=== PATIENT | female | born 1965 | race Two or more races ===

== ENCOUNTER 2020-05-12 19:37 | Inpatient (IN) | payer OTHER, BC ==
[~2020-05-12] VITALS: Ht 154.9 cm; Wt 128.3 kg
[2020-05-12] MEDS ORDERED: KETOROLAC TROMETH 30 MG/ML 1ML VIAL ONE (22:19)
[2020-05-12] MEDS ORDERED: KETOROLAC TROMETH 30 MG/ML 1ML VIAL IV ONE (22:30)
[2020-05-12 23:48] LABS: Basophils # (auto) 0 10 ^3/uL (0-0.2); Basophils % (auto) 0.3 % (0.0-2.0); Eosinophils # (auto) 0 10 ^3/uL (0-0.8); Eosinophils % (auto) 0.1 % (0.0-7.0); Hematocrit 35.5 % (36.0-46.0); Hemoglobin 11.6 g/dL (12.2-16.2); Lymphocytes # (auto) 1.1 10 ^3/uL (0.4-5.4); Lymphocytes % (auto) 7.7 % (10.0-50.0); Mean Corpuscular Hemoglobin 28.4 pg (28.0-32.0); Mean Corpuscular Hgb Conc. 32.7 g/dL (32.0-36.0); Mean Corpuscular Volume 86.9 fL (80.0-100.0); Monocytes # (auto) 0.7 10 ^3/uL (0-1.3); Monocytes % (auto) 4.9 % (0.0-12.0); Neutrophils # (auto) 12.9 10 ^3/uL (1.6-8.6); Nucleated Red Blood Cells % 0.1 %; Platelet Count (auto) 328 10^3/uL (140-450); Red Blood Cells 4.08 10^6/uL (4.0-5.20); Red Cell Distribution Width 13.1 % (11.8-14.3); White Blood Cell 14.8 10^3/uL (4.4-10.8)
[2020-05-13] VITALS (7 sets, daily range): BP systolic 105–135; BP diastolic 42–70
[2020-05-13 00:07] LABS: Alanine Aminotransferase 20 U/L (13-56); Albumin 3.7 g/dL (3.4-5.0); Anion Gap 8 (5-15); Aspartate Aminotransferase 18 U/L (15-37); BUN/Creatinine Ratio 23.7; Blood Urea Nitrogen 18 mg/dL (7-18); Calcium 8.3 mg/dL (8.5-10.1); Carbon Dioxide 27 mmol/L (21-32); Chloride 104 mmol/L (98-107); GFR African American 101 mL/min; GFR Non-African American 83 mL/min; Glucose 116 mg/dL (74-106); Potassium 4.2 mmol/L (3.5-5.1); Sodium 139 mmol/L (136-145)
[2020-05-13 00:12] LABS: Alkaline Phosphatase 73 U/L (45-117); Bilirubin, Total 0.5 mg/dL (0.2-1.0); Total Protein 7.1 g/dL (6.4-8.2)
[2020-05-13 00:32] LABS: INR 0.98 (0.9-1.15)
[2020-05-13] MEDS: D5W/SOD CHL 0.45% 1,000 ML IV SCH ×2 (01:30→18:21)
[2020-05-13] MEDS ORDERED: MORPHINE SULF INJ 2 MG/ML SYRINGE 1ML IV PRN (01:30)
[2020-05-13] MEDS ORDERED: ACETAMINOPHEN 325 MG TAB PO PRN (01:30)
[2020-05-13] MEDS ORDERED: NITROGLYCERIN 0.4 MG SL TAB SL PRN (01:30)
[2020-05-13] MEDS: ONDANSETRON HCL 4 MG/2 ML VIAL IV PRN ×4 (03:40→21:39)
[2020-05-13] MEDS: MORPHINE SULFATE 4 MG/ML SYR/VIAL IV PRN ×4 (03:40→21:38)
--- NOTE | 2020-05-13 04:00 | NUR ---
Telemetry admit from ER: AMANDA REYES admitted to Telemetry unit after SBAR received. Patient oriented to EVI FLOWERS RN primary RN, unit, room, bed, and unit policies regarding patient care and visiting hours. Patient now on continuous telemetry monitoring, tele box # [id number], and telemetry reading on arrival to unit is SINUS RHYTHM, 76 BPM. Patient encouraged to call if they need something. All questions and concerns addressed, patient verbalized understanding. Addendum: 05/13/20 at 0439 by EVI FLOWERS RN RN TELE #[id number]
[2020-05-13 06:36] LABS: Basophils # (auto) 0 10 ^3/uL (0-0.2); Basophils % (auto) 0.5 % (0.0-2.0); Eosinophils # (auto) 0 10 ^3/uL (0-0.8); Eosinophils % (auto) 0.4 % (0.0-7.0); Hematocrit 34.4 % (36.0-46.0); Hemoglobin 11.2 g/dL (12.2-16.2); Lymphocytes # (auto) 1.8 10 ^3/uL (0.4-5.4); Lymphocytes % (auto) 20.7 % (10.0-50.0); Mean Corpuscular Hemoglobin 28.4 pg (28.0-32.0); Mean Corpuscular Hgb Conc. 32.7 g/dL (32.0-36.0); Mean Corpuscular Volume 86.9 fL (80.0-100.0); Monocytes # (auto) 0.8 10 ^3/uL (0-1.3); Neutrophils # (auto) 5.9 10 ^3/uL (1.6-8.6); Neutrophils % (auto) 69.4 % (37.0-80.0); Platelet Count (auto) 317 10^3/uL (140-450); Red Blood Cells 3.96 10^6/uL (4.0-5.20); Red Cell Distribution Width 13.4 % (11.8-14.3); White Blood Cell 8.5 10^3/uL (4.4-10.8)
[2020-05-13 06:59] LABS: Calcium 8.2 mg/dL (8.5-10.1); Potassium 4.1 mmol/L (3.5-5.1)
[2020-05-13 07:05] LABS: Albumin 3.5 g/dL (3.4-5.0); BUN/Creatinine Ratio 20.5; Bilirubin, Total 0.8 mg/dL (0.2-1.0); Total Protein 6.9 g/dL (6.4-8.2)
--- NOTE | 2020-05-13 08:02 | NUR ---
Dr. Mauro called regarding patient status. Dr. Mauro to transfer patient to [facility] to refer to Ortho trauma specialist Dr. Quiroga. Doctor said is his way to see patient at hospital.
--- NOTE | 2020-05-13 08:15 | NUR ---
Tone Mauro at bedside talking to patient. Dr. Mauro said patient to be transferred today to [facility] and possible surgery tomorrow 05/14. Patient understood plan. Will continue to monitor and follow up.
[2020-05-13] MEDS: PANTOPRAZOLE 40 MG/10 ML VIAL INJ IV SCH (10:47)
[2020-05-13] MEDS: ENOXAPARIN SOD 40 MG/0.4 ML SYRINGE SC SCH (10:48)
[2020-05-13] MEDS: cefTRIAXone 1GM/50ML D5W 50 ML IV SCH (10:48)
--- NOTE | 2020-05-13 12:40 | NUR ---
Paged personal development educator rn social work at this time. Awaiting call back.
--- NOTE | 2020-05-13 13:05 | NUR ---
COVID SWAB COLLECTED AND WALKED TO LAB.
--- NOTE | 2020-05-13 13:06 | NUR ---
Called [facility] [phone], spoke with [facility] [employer], stated they do not have any beds, but took the name of the patient and stated to fax the Clinical Packet which I did, . Stated she would need the CT of the Head and the COVID faxed to her when it was done, Called the Nurse Bridget and ask her to fax the CT of the Head and the COVI test. Stated I would need to get auth from [facility] but stated they are closed today, express to Nikole that I would fax the packet to then [facility] try to call.
--- NOTE | 2020-05-13 14:33 | NUR ---
CALLED AND UPDATED DR. Lavinia GONG REGARDING HEAD CT RESULTS.
--- NOTE | 2020-05-13 19:10 | NUR ---
CLOSING NOTE: PATIENT RESTING IN BED. NO S/S OF DISTRESS.
[2020-05-13] MEDS: HYDROcodone-ACET 5/325MG TAB PO PRN (23:33)
[2020-05-14] MEDS: MORPHINE SULFATE 4 MG/ML SYR/VIAL IV PRN ×2 (03:31→09:23)
[2020-05-14 05:00] VITALS: BP 133/56
[2020-05-14] MEDS: D5W/SOD CHL 0.45% 1,000 ML IV SCH ×2 (05:15→17:30)
[2020-05-14] MEDS: HYDROcodone-ACET 5/325MG TAB PO PRN ×3 (05:16→20:21)
--- NOTE | 2020-05-14 07:40 | NUR ---
Opening Shift Note: Assumed care of patient, awake and alert. No S/S of distress/SOB. Bed in lowest locked position, side rails up x 2, call light within reach. Patient instructed on POC and to call for assist PRN, will continue to monitor for changes Q1hr and PRN.
--- NOTE | 2020-05-14 08:47 | NUR ---
Received a call from Fran at [facility] [phone], stated they do not have beds and did not receive the CT of the Head or Covid results, express to her that I will fax them
[2020-05-14] MEDS: cefTRIAXone 1GM/50ML D5W 50 ML IV SCH (09:10)
[2020-05-14] MEDS: ONDANSETRON HCL 4 MG/2 ML VIAL IV PRN (09:11)
[2020-05-14] MEDS: PANTOPRAZOLE 40 MG/10 ML VIAL INJ IV SCH (09:11)
[2020-05-14] MEDS: ENOXAPARIN SOD 40 MG/0.4 ML SYRINGE SC SCH (09:11)
[2020-05-14 09:21] LABS: Basophils # (auto) 0.1 10 ^3/uL (0-0.2); Basophils % (auto) 0.7 % (0.0-2.0); Eosinophils # (auto) 0.2 10 ^3/uL (0-0.8); Eosinophils % (auto) 1.9 % (0.0-7.0); Hematocrit 31.5 % (36.0-46.0); Hemoglobin 10.2 g/dL (12.2-16.2); Lymphocytes % (auto) 24.7 % (10.0-50.0); Mean Corpuscular Hemoglobin 28.5 pg (28.0-32.0); Mean Corpuscular Hgb Conc. 32.4 g/dL (32.0-36.0); Mean Corpuscular Volume 87.9 fL (80.0-100.0); Monocytes # (auto) 0.9 10 ^3/uL (0-1.3); Monocytes % (auto) 11.6 % (0.0-12.0); Neutrophils % (auto) 61.1 % (37.0-80.0); Platelet Count (auto) 280 10^3/uL (140-450); Red Blood Cells 3.58 10^6/uL (4.0-5.20); Red Cell Distribution Width 13.5 % (11.8-14.3); White Blood Cell 8.2 10^3/uL (4.4-10.8)
[2020-05-14 09:40] LABS: Albumin 3.3 g/dL (3.4-5.0); Calcium 8.2 mg/dL (8.5-10.1); Potassium 3.6 mmol/L (3.5-5.1)
[2020-05-14 09:44] LABS: BUN/Creatinine Ratio 13.7; Bilirubin, Total 0.4 mg/dL (0.2-1.0); Total Protein 6.9 g/dL (6.4-8.2)
--- NOTE | 2020-05-14 10:44 | NUR ---
FAXED CT SCAN AND COVID RESULTS TO [facility].
--- NOTE | 2020-05-14 11:34 | NUR ---
Juarez catheter insertion: Patient assessed and determined to be in need of juarez catheter. Order obtained from MD Lavinia Lewis. Patient educated on catheter and reason for insertion. All questions answered. Juarez catheter 16 guage German inserted with clean sterile technique. Patient tolerated well.
[2020-05-14] MEDS: DOCUSATE SOD 100 MG CAP PO PRN ×2 (13:48→20:31)
[2020-05-14 17:13] VITALS: BP 133/92
[2020-05-14] MEDS: KETOROLAC TROMETH 30 MG/ML 1ML VIAL IV PRN (17:55)
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
[2020-05-14 21:00] VITALS: BP 144/70
[2020-05-15] MEDS: KETOROLAC TROMETH 30 MG/ML 1ML VIAL IV PRN ×2 (01:58→13:17)
[2020-05-15 05:00] VITALS: BP 132/52
[2020-05-15] MEDS: D5W/SOD CHL 0.45% 1,000 ML IV SCH ×2 (06:33→20:10)
[2020-05-15 08:37] VITALS: BP 127/37
[2020-05-15] MEDS: PANTOPRAZOLE 40 MG/10 ML VIAL INJ IV SCH (08:39)
[2020-05-15] MEDS: cefTRIAXone 1GM/50ML D5W 50 ML IV SCH (08:39)
[2020-05-15] MEDS: DOCUSATE SOD 100 MG CAP PO PRN ×2 (08:40→21:58)
[2020-05-15] MEDS: HYDROcodone-ACET 5/325MG TAB PO PRN ×3 (08:40→21:58)
[2020-05-15] MEDS: ENOXAPARIN SOD 40 MG/0.4 ML SYRINGE SC SCH (08:43)
--- NOTE | 2020-05-15 11:56 | NUR ---
Called [facility] [phone] ext [phone], spoke with Fran transfer station operator stated they have no beds.
--- NOTE | 2020-05-15 12:05 | NUR ---
Nutrition Assessment Est energy needs 7073-6734 kcal (25-30 kcal/kg BW 58kg) Est protein need 47-58g (0.8-1g/kg BW 58kg) Will monitor and reassess prn. Addendum: 05/15/20 at [address] Amended: Links added.
[2020-05-15] MEDS: ONDANSETRON HCL 4 MG/2 ML VIAL IV PRN (13:17)
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
[2020-05-15 16:43] VITALS: BP 124/74
--- NOTE | 2020-05-15 19:30 | NUR ---
Opening Shift Note Assumed care of patient, awake and alert. No S/S of distress/SOB, and pt denies pain. Pt requesting nurse delay assessment, "until your med pass. I am working on having a bowel movement. Insructed on POC and to call for assist PRN; pt agreed with POC and to call prn. This RN will continue to monitor for changes Q1hr and PRN. Bed low and nurse call light within pt's reach. Nurse had brought bedpan to pt per her request placing it in bed with pt per her request.
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
[2020-05-15 22:00] VITALS: BP 137/61
--- NOTE | 2020-05-15 22:24 | NUR ---
Pt refusing more IV fluid at this time; taking fluids well. Pt states she feels IV site may become infiltrated soon and does not want to have a new IV site at this time; therefore she wants this site "to rest."
[2020-05-16] MEDS: HYDROcodone-ACET 5/325MG TAB PO PRN ×3 (03:26→15:16)
[2020-05-16 04:00] VITALS: BP 140/51
[2020-05-16] MEDS: DOCUSATE SOD 100 MG CAP PO PRN (08:53)
[2020-05-16] MEDS: ENOXAPARIN SOD 40 MG/0.4 ML SYRINGE SC SCH (08:55)
[2020-05-16] MEDS: cefTRIAXone 1GM/50ML D5W 50 ML IV SCH (08:55)
[2020-05-16 09:00] VITALS: BP 149/66
[2020-05-16] MEDS: D5W/SOD CHL 0.45% 1,000 ML IV SCH (09:30)
--- NOTE | 2020-05-16 09:38 | NUR ---
Called and spoke with Megan [phone] at [facility] and ask about the authorization for the patient to be transferred to [facility], stated I needed to call [facility] , Called [facility] and spoke with Kendall Yi, stated that the facility that we were transferring the patient to has to call and get auth. Called [facility] [phone] and spoke with Nikole at the transportation Center, explain that [facility] would not give me auth for the patient, stated they have to call, per Nikole they have no beds and are not taking any transfers. Called the [facility] and spoke with the Charge Nurse Fran, ask her to tell the nurse Ama PLASENCIA, and let the MD know.
--- NOTE | 2020-05-16 09:54 | NUR ---
Called Dr Mauro informed him that [facility] states they will not have a bed for the patient, stated he has spoke with Dr Quiroga at [facility] and he stated the patient can been seen as an outpatient, stated he spoke with Dr Lewis and explain that she can be discharged and go there to see the MD.
[2020-05-16] MEDS: PANTOPRAZOLE 40 MG/10 ML VIAL INJ IV SCH (10:00)
--- NOTE | 2020-05-16 10:07 | NUR ---
Received a message from Anastasia SHELL for [employer] [phone], stating that she needs the records for the patient, tried t0 return the call but no answer, left a message stating that we have requested the records be faxed to her by the remote team, left anderson back information.
--- NOTE | 2020-05-16 10:49 | NUR ---
Received a call from [facility] Nurse for [facility] [phone] gave update on the patient,
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
[2020-05-16 13:00] VITALS: BP 139/41
[2020-05-16 15:17] VITALS: BP 139/41
--- NOTE | 2020-05-16 18:01 | NUR ---
DISCHARGE INSTRUCTIONS AND WORK EXCUSE GIVEN TO PT. VERBALIZED UNDERSTANDING AND ALL APPROPRIATE PAPERWORK SIGNED. IV AND TELE BOX REMOVED. PT TOOK CRUTCHES ALONG WITH HER. PT DISCHARGED HOME WITH FRIENDS.
== END 2020-05-16 17:35 | disposition home or self-care (01) | DRG 563 ==
LOC: EDBD 19:37 → ER 19:43 → TELE 19:44 → TELE-WESTW 05-13 04:00
PROVIDERS: ADMIT Nurse Practitioner Family; ATTEND Family Medicine
DX: S82.201A Unspecified fracture of shaft of right tibia, initial encounter for closed fracture (principal); M97.11XA Periprosthetic fracture around internal prosthetic right knee joint, initial encounter; S82.831A Other fracture of upper and lower end of right fibula, initial encounter for closed fracture; D72.829 Elevated white blood cell count, unspecified; Z20.828 Contact with and (suspected) exposure to other viral communicable diseases; Z96.651 Presence of right artificial knee joint; V89.2XXA Person injured in unspecified motor-vehicle accident, traffic, initial encounter; Y92.410 Unspecified street and highway as the place of occurrence of the external cause; Y93.89 Activity, other specified
CPT/HCPCS: 36415; 70450; 71045; 73560; 73700; 80053; 84484; 85025; 85610; 93005; 97163; C9113; G0378; J0696; J1885; J2405

== ENCOUNTER 2024-02-12 19:17 | Emergency (ER) | payer BC, MEDICAID ==
[~2024-02-12] VITALS: Ht 154.9 cm; Wt 54.6 kg
[2024-02-12 20:11] LABS: Urine Bacteria None Seen /hpf (None Seen)
[2024-02-12] MEDS: MORPHINE SULFATE 4 MG/ML SYR/VIAL IV ONE (20:15)
[2024-02-12 20:26] LABS: Urine Blood Negative /uL (Negative); Urine Clarity Clear (Clear); Urine Color Yellow (Yellow); Urine Mucus FEW (None Seen); Urine Protein, UAD Negative (Negative); Urine Specific Gravity 1.018 (1.001-1.035); Urine Urobilinogen Normal (Negative); Urine WBC 2 /hpf (0 - 5); Urine pH 5.5 (5.0-9.0)
[2024-02-12 20:26] LABS: Basophils # (auto) 0.1 10 ^3/uL (0-0.2); Eosinophils # (auto) 0.2 10 ^3/uL (0-0.8); Eosinophils % (auto) 2.6 % (0.0-7.0); Hematocrit 38.6 % (36.0-46.0); Lymphocytes # (auto) 3.3 10 ^3/uL (0.4-5.4); Mean Corpuscular Hemoglobin 29.1 pg (28.0-32.0); Mean Corpuscular Hgb Conc. 33.8 g/dL (32.0-36.0); Mean Corpuscular Volume 86.2 fL (80.0-100.0); Monocytes # (auto) 0.7 10 ^3/uL (0-1.3); Neutrophils # (auto) 4.3 10 ^3/uL (1.6-8.6); Neutrophils % (auto) 50.4 % (37.0-80.0); Platelet Count (auto) 299 10^3/uL (140-450); Red Blood Cells 4.48 10^6/uL (4.0-5.20); Red Cell Distribution Width 13.3 % (11.8-14.3); White Blood Cell 8.6 10^3/uL (4.4-10.8)
[2024-02-12 20:47] LABS: Alanine Aminotransferase 13 U/L (7-40); Albumin 4.2 g/dL (3.2-4.8); Alkaline Phosphatase 82 U/L (46-116); Anion Gap 7 (5-15); Aspartate Aminotransferase 16 U/L (13-40); BUN/Creatinine Ratio 16.3 (10.0-20.0); Bilirubin, Total 0.5 mg/dL (0.2-1.0); Blood Urea Nitrogen 15 mg/dL (9-23); Calcium 8.6 mg/dL (8.7-10.4); Carbon Dioxide 23 mmol/L (20-30); Chloride 110 mmol/L (98-107); Glucose 91 mg/dL (74-106); Lipase 45 U/L (12-53); Potassium 3.5 mmol/L (3.5-5.1); Sodium 140 mmol/L (136-145); Total Protein 6.9 g/dL (5.7-8.2)
[2024-02-12] MEDS ORDERED: DICY10CA PO (21:14)
[2024-02-12] MEDS ORDERED: ZOFR4T PO (21:14)
[2024-02-12] MEDS ORDERED: LOPE7.5C PO (21:14)
[2024-02-12] MEDS: SODIUM CHLORIDE 0.9% 1,000 ML IV ONE (21:48)
[2024-02-12] MEDS: FAMOTIDINE (10MG/ML) 2ML VL IV ONE (21:52)
[2024-02-12] MEDS: ONDANSETRON HCL 4 MG/2 ML VIAL IV ONE (21:52)
[2024-02-12 22:38] VITALS: BP 145/50; PULSE 71; RESP 16; TEMP 97.8; O2SAT 100
== END 2024-02-12 22:40 | disposition home or self-care (01) ==
LOC: ER 19:17
DX: R10.13 Epigastric pain (principal); R11.10 Vomiting, unspecified; R19.7 Diarrhea, unspecified; Z98.890 Other specified postprocedural states
CPT/HCPCS: 36415; 74176; 80053; 81001; 83036; 83690; 85025; 96361; 96374; 96375; 99285; J2405; J3490; J7030